=== PATIENT | female | born 1955 | race Caucasian/White ===

== ENCOUNTER → 2024-05-08 08:46 | Outpatient (REF) | payer MEDICARE, SELFPAY | LOC: WDC 08:46 | PROVIDERS: ATTENDING PHYSICIAN Obstetrics & Gynecology Gynecology; FAMILY PHYSICIAN Family Medicine | DX: Z12.31 Encounter for screening mammogram for malignant neoplasm of breast (principal) | CPT/HCPCS: 77063; 77067 ==

== ENCOUNTER → 2024-11-12 09:14 | Outpatient (REF) | payer MEDICARE, SELFPAY | LOC: RCS 09:14 | PROVIDERS: ATTENDING PHYSICIAN Family Medicine | DX: R01.1 Cardiac murmur, unspecified (principal); I51.9 Heart disease, unspecified | CPT/HCPCS: 93306 ==